=== PATIENT | female | born 1950 | race Native Hawaiian/Other Pacific Islander ===

== ENCOUNTER 2019-08-09 13:03 | Emergency (ER) | payer OTHER ==
[~2019-08-09] VITALS: Ht 162.6 cm; Wt 68.9 kg
[2019-08-09 13:03] VITALS: BP 116/63; TEMP 97.7
[2019-08-09 13:46] LABS: PLATELET COUNT 354 K/uL (152-353)
[2019-08-09 13:53] LABS: POTASSIUM 3.5 mmol/L (3.6-5.2)
[2019-08-09] MEDS ORDERED: ATEN25TA21 PO (16:37)
[2019-08-09] MEDS ORDERED: ABILIFY MYCITE2 MG PO (16:37)
[2019-08-09] MEDS ORDERED: LORA0.5T17 PO (16:39)
[2019-08-09] MEDS ORDERED: LIPITOR80 MG PO (16:40)
[2019-08-09] MEDS ORDERED: CHOLESTYRAM PO (16:40)
[2019-08-09] MEDS ORDERED: METFORMIN ER1000 MG PO (16:43)
[2019-08-09] MEDS ORDERED: ACIDOPHILU6 PO (16:43)
[2019-08-09] MEDS ORDERED: AMLODIPINE BESYLATE PO (16:44)
[2019-08-09] MEDS ORDERED: DULO30CA PO (16:45)
[2019-08-09] MEDS ORDERED: OXYC5TAB53 PO (16:45)
[2019-08-09] MEDS ORDERED: CLOP75TA2 PO (16:46)
[2019-08-09] MEDS ORDERED: POTA10CA3 PO (16:47)
[2019-08-09] MEDS ORDERED: PANTOPRAZOLE 40MG TA PO (16:48)
[2019-08-09] MEDS ORDERED: SEROQUEL25 MG PO (16:48)
[2019-08-09] MEDS ORDERED: TRADJENTA5 M1 PO (16:49)
[2019-08-09] MEDS ORDERED: TOPAMAX50 MG PO (16:49)
[2019-08-09] MEDS ORDERED: HALCION0.25 MG PO (16:50)
[2019-08-09] MEDS ORDERED: VALS160T2 PO (16:51)
== END 2019-08-09 14:31 | disposition still patient (30) ==
LOC: ED 13:28
PROVIDERS: Hospitalist
DX: F03.91 Unspecified dementia, unspecified severity, with behavioral disturbance (principal); Z04.6 Encounter for general psychiatric examination, requested by authority
CPT/HCPCS: 80053; 85027; 93005; 99283; 99285

== ENCOUNTER 2019-08-22 12:21 | Inpatient (IN) | payer OTHER ==
[~2019-08-22] VITALS: Ht 167.6 cm; Wt 66.9 kg
[2019-08-22] VITALS (17 sets, daily range): BP systolic 100–155; BP diastolic 35–93; TEMP 97.2–99.1; Ht 167.6 cm; Wt 66.9 kg
[~2019-08-22 12:21] MED LIST: ABILIFY MYCITE2 MG PO; ACIDOPHILU6 PO; AMLODIPINE BESYLATE PO; ATEN25TA21 PO; CHOLESTYRAM PO; CLOP75TA2 PO; DULO30CA PO; HALCION0.25 MG PO; LIPITOR80 MG PO; LORA0.5T17 PO; METFORMIN ER1000 MG PO; OXYC5TAB53 PO; PANTOPRAZOLE 40MG TA PO; POTA10CA3 PO; SEROQUEL25 MG PO; TOPAMAX50 MG PO; TRADJENTA5 M1 PO; VALS160T2 PO
[2019-08-22 13:03] LABS: PLATELET COUNT 224 K/uL (152-353)
[2019-08-22 13:25] LABS: POTASSIUM 4.8 mmol/L (3.6-5.2)
[2019-08-22 13:37] LABS: SODIUM 161 mmol/L (136-145)
[2019-08-22] MEDS ORDERED: MEMA5TAB PO (15:13)
[2019-08-22] MEDS ORDERED: ARIPIPRAZOLE10 MG PO (15:13)
[2019-08-22] MEDS ORDERED: DIVA250T PO (15:13)
[2019-08-22] MEDS ORDERED: CHOL100034 PO (15:13)
[2019-08-22] MEDS ORDERED: CYAN10009 IM (15:13)
[2019-08-22] MEDS ORDERED: DULO30CA PO (15:13)
[2019-08-22] MEDS ORDERED: DONE5TAB PO (15:13)
[2019-08-22 16:46] LABS: POTASSIUM 4.7 mmol/L (3.6-5.2)
[2019-08-22] MEDS ORDERED: METF500T PO (19:57)
[2019-08-22] MEDS ORDERED: ABILIFY MYCITE5 MG PO (20:05)
[2019-08-23] VITALS (17 sets, daily range): BP systolic 105–141; BP diastolic 35–80; TEMP 97.8–101.9
[2019-08-23 06:19] LABS: PLATELET COUNT 84 K/uL (152-353)
[2019-08-24] VITALS (23 sets, daily range): BP systolic 114–159; BP diastolic 50–75; TEMP 97.3–99.3
[2019-08-24 05:15] LABS: PLATELET COUNT 131 K/uL (152-353)
[2019-08-24 05:43] LABS: POTASSIUM 3.3 mmol/L (3.6-5.2)
[2019-08-25] VITALS (17 sets, daily range): BP systolic 126–179; BP diastolic 48–66; TEMP 97.3–99.1
[2019-08-25 05:38] LABS: PLATELET COUNT 122 K/uL (152-353)
[2019-08-25 05:51] LABS: POTASSIUM 3.2 mmol/L (3.6-5.2)
== END 2019-08-25 16:49 | DRG 872 ==
LOC: ED 12:21 → ICU 14:32
PROVIDERS: Family Medicine; ADMIT Emergency Medicine
DX: A41.89 Other specified sepsis (principal); E87.0 Hyperosmolality and hypernatremia; E87.2 Acidosis; I69.351 Hemiplegia and hemiparesis following cerebral infarction affecting right dominant side; N39.0 Urinary tract infection, site not specified; E87.8 Other disorders of electrolyte and fluid balance, not elsewhere classified; E11.65 Type 2 diabetes mellitus with hyperglycemia; D72.828 Other elevated white blood cell count; R00.0 Tachycardia, unspecified; E86.0 Dehydration; I10 Essential (primary) hypertension; I69.322 Dysarthria following cerebral infarction; I69.391 Dysphagia following cerebral infarction; R13.19 Other dysphagia; I69.818 Other symptoms and signs involving cognitive functions following other cerebrovascular disease
CPT/HCPCS: 36415; 80053; 80307; 81000; 81002; 82140; 82550; 82553; 82947; 83605; 83735; 83880; 84439; 84443; 84481; 84484; 85027; 87015; 87040; 87045; 87324; 87449; 87502; 87899; 93005; 94760; 96360; 96361; 96375; 99285; J0515; J0696; J1650; J1815; J2060; J2310; J3410; J3420; J3486